=== PATIENT | female | born 1985 | race Caucasian/White ===

== ENCOUNTER 2019-09-10 16:45 | Observation (INO) ==
[2019-09-10] MEDS ORDERED: Naloxone 0.4 MG/ML INJ IVP PRN (23:49)
[2019-09-11] MEDS ORDERED: Naloxone 0.4 MG/ML INJ IVP PRN (00:56)
[2019-09-11] MEDS ORDERED: *HR* Heparin 5,000 UNIT/ML VIAL IVP PRN ×2 (01:00)
[2019-09-11] MEDS ORDERED: Heparin 25,000 UNIT/250 ML D5W 25,000 UNIT/250 ML IV.SOLN IVC SCH (01:00)
[2019-09-11] MEDS ORDERED: Dextrose Gel 15 GM/37.5 ML TUBE PO PRN ×2 (01:06)
[2019-09-11] MEDS ORDERED: D5% in Water 1,000 ML IVC PRN (01:06)
[2019-09-11] MEDS ORDERED: *HR* Dextrose 50 % in Water (Syg) 50 ML SYRINGE IVP PRN (01:06)
[2019-09-11] MEDS ORDERED: Ondansetron 4 MG/2 ML VIAL IVP PRN (02:09)
[2019-09-11] MEDS ORDERED: Acetaminophen 325 MG TABLET PO PRN (02:09)
[2019-09-11] MEDS ORDERED: Ipratropium/Albuterol Neb 3 ML IH PRN (02:11)
[2019-09-11 04:18] LABS: Basophils # 0.1 K/mcL (0.0-0.2); Basophils % 0.5 %; Eosinophils # 0.2 K/mcL (0.0-0.6); Eosinophils % 1.7 %; Hematocrit 38.2 % (35.3-44.9); Hematocrit 39.3 % (35.3-44.9); Hemoglobin 12.4 g/dL (11.5-15.4); Hemoglobin 12.5 g/dL (11.5-15.4); Immature Granulocytes % 0.4 % (0-4); Lymphocytes # 3.5 K/mcL (0.6-4.6); Lymphocytes % 28.7 %; Mean Corpuscular HGB Conc 31.8 g/dL (31.6-35.5); Mean Corpuscular HGB Conc 32.5 g/dL (31.6-35.5); Mean Corpuscular Hemoglobin 30.3 pg (28.0-33.3); Mean Corpuscular Hemoglobin 31.1 pg (28.0-33.3); Mean Corpuscular Volume 95.4 fL (83.0-100.0); Mean Corpuscular Volume 95.7 fL (83.0-100.0); Mean Platelet Volume 9.7 fL (9.4-12.4); Monocytes # 0.5 K/mcL (0.0-1.3); Monocytes % 4.3 %; Neutrophils # 7.8 K/mcL (1.6-8.9); Platelet Count 300 K/mcL (140-400); Platelet Count 301 K/mcL (140-400); Red Blood Count 3.99 M/mcL (3.82-4.97); Red Blood Count 4.12 M/mcL (3.82-4.97); Red Cell Distribution Width 12.7 % (11.5-14.5); Segmented Neutrophils % 64.4 %; White Blood Count 12.1 K/mcL (4.3-11.1); White Blood Count 12.4 K/mcL (4.3-11.1)
[2019-09-11 04:19] LABS: Heparin anti-factor XA UFH < 0.04 IU/mL (0.30-0.70); INR 1.1
[2019-09-11 04:20] LABS: INR 1.1; Prothrombin Time 12.8 Seconds (9.4-12.1)
[2019-09-11 04:34] LABS: BUN/Creatinine Ratio 24 (6-26); Blood Urea Nitrogen 14 mg/dL (6-20); Calcium 8.4 mg/dL (8.6-10.3); Carbon Dioxide 25 mEq/L (23-29); Chloride 107 mEq/L (98-107); Glucose 186 mg/dL (70-105); Osmolality,Calculated 287 (280-300); Potassium 3.8 mEq/L (3.5-5.1); Sodium 136 mEq/L (136-145); eGFR For African Americans > 60 (> 60); eGFR For Non-African Americans > 60 (> 60)
[2019-09-11 04:35] LABS: Chol/HDL Ratio 6.2 (0-4.9); Magnesium 1.9 mg/dL (1.6-2.6); Phosphorous 4.3 mg/dL (2.7-4.5)
[2019-09-11] MEDS ORDERED: Aspirin Enteric Coated 81 MG Tablet PO SCH (09:00)
[2019-09-11] MEDS ORDERED: Loratadine 10 MG TABLET PO SCH ×2 (09:00)
[2019-09-11] MEDS ORDERED: Furosemide 40 MG TABLET PO SCH (09:00)
[2019-09-11] MEDS ORDERED: Gabapentin 300 MG CAPSULE PO SCH ×2 (09:00→21:00)
[2019-09-11] MEDS ORDERED: ARIPiprazole 10 MG TABLET PO SCH (09:00)
[2019-09-11] MEDS: Insulin LISPRO 300 UNITS/3 ML VIAL SQ SCH ×2 (10:15→12:23)
[2019-09-11 15:43] VITALS: BP 108/89
[2019-09-11] MEDS ORDERED: *HR* Rivaroxaban 10 MG TABLET PO SCH (17:00)
[2019-09-11] MEDS ORDERED: Insulin LISPRO 300 UNITS/3 ML VIAL SQ SCH (21:00)
== END 2019-09-11 18:16 | disposition home or self-care (01) ==
LOC: 2NENU → SUATTDRO 21:53
PROVIDERS: ADMIT Family Medicine; ATTEND Internal Medicine